=== PATIENT | male | born 1950 | race Caucasian/White ===

== ENCOUNTER → 2018-06-16 | Day surgery (SDC) | payer MEDICARE ==
[2018-06-09 16:19] LABS: BASOPHILS # (AUTO) 0.1 (0.0-0.1); BASOPHILS % 0.8 % (0.0-1.0); EOSINOPHILS # (AUTO) 0.3 (0.0-0.4); EOSINOPHILS % 3.2 % (0.0-6.0); HEMATOCRIT 42.5 % (38.2-49.6); HEMOGLOBIN 13.8 g/dL (14.0-18.0); LYMPHOCYTES # (AUTO) 3.3 (1.0-3.2); LYMPHOCYTES % 38.8 % (18.0-39.1); MEAN CORPUSCULAR HEMOGLOBIN 30.9 pg (28-32); MEAN CORPUSCULAR HGB CONC 32.5 g/dL (31-35); MEAN CORPUSCULAR VOLUME 95.1 fL (81-99); MONOCYTES # (AUTO) 0.8 (0.2-0.8); PLATELET COUNT 232 x10e3/uL (140-360); RED BLOOD COUNT 4.47 x10e6/uL (4.3-5.7); RED CELL DISTRIBUTION WIDTH 14.6 % (11.7-14.4)
[~2018-06-16] MED LIST: ATENOLOL50 MG PO; FLOMAX0.4 MG PO; KETAMINE HCL INJ 50 MG/ML 10 ML VIAL ONE; LIDOCAINE HCL 2% LOCAL INJ 5 ML SDV VIAL INJ ONE; LIPITOR10 MG PO; MIDAZOLAM HCL 2 MG/2 ML VIAL ONE; NORCO 10-325 T1 EACH PO; PROPOFOL IV EMULSION 10 MG/ML 50 ML VIAL ONE
[2018-06-16 16:00] VITALS: BP 135/76
--- NOTE | 2018-06-16 18:16 | Operative Report ---
DATE OF PROCEDURE: June 16, 2018 REFERRING PHYSICIAN: Dr. Jamel Ma PROCEDURE PERFORMED: Colonoscopy with polypectomy. INDICATIONS FOR COLONOSCOPY: Colorectal cancer screening. MEDICATION: Patient was done under MAC. Please see anesthesiologist's note. PROCEDURE: With the patient in the left lateral decubitus position, the flexible fiberoptic Olympus colonoscope was inserted into the rectum with ease and advanced all the way to the cecum. Distal sigmoid colon was sharply angulated and negotiated with difficulty and suboptimally visualized. The scope was then withdrawn slowly. Mucosa overlying the cecum and ascending appeared to be within normal limits. One polyp was hot biopsied from the transverse colon. The descending colon appeared to be within normal limits. Diverticular disease was noted in the sigmoid colon. One polyp was removed per hot biopsy forceps from the sigmoid colon. One polyp was hot biopsied from the rectum. The scope was then retroflexed into the distal rectum, and the area around the dentate line appeared to be within normal limits. The scope was then straightened out. It was subsequently withdrawn. Patient tolerated the procedure well. IMPRESSION 1. Transverse colon polyp, hot biopsied. 2. Diverticulosis. 3. Sigmoid colon polyp, hot biopsied. 4. Distal sigmoid colon sharply angulated and negotiated with some difficulty and suboptimally visualized. 5. Rectal polyp, hot biopsied. PLAN: Follow up histology. Initiate high-fiber and low-fat diet. Initiate high-fiber supplement. Start MiraLAX 17 g in a glass of water once daily. Patient might benefit from a followup colonoscopy in 3 to 5 years. Job#: [id number] RI cc:JAMEL MA MD
== END | disposition home or self-care (01) ==
LOC: OR 10:41
PROVIDERS: ATTEND Internal Medicine Gastroenterology
DX: Z12.11 Encounter for screening for malignant neoplasm of colon (principal); D12.3 Benign neoplasm of transverse colon; D12.8 Benign neoplasm of rectum; K57.30 Diverticulosis of large intestine without perforation or abscess without bleeding; K59.09 Other constipation; K56.609 Unspecified intestinal obstruction, unspecified as to partial versus complete obstruction; J44.9 Chronic obstructive pulmonary disease, unspecified; I10 Essential (primary) hypertension; M54.9 Dorsalgia, unspecified; E78.00 Pure hypercholesterolemia, unspecified; Z01.810 Encounter for preprocedural cardiovascular examination; Z01.812 Encounter for preprocedural laboratory examination; Z87.891 Personal history of nicotine dependence; Z80.0 Family history of malignant neoplasm of digestive organs
CPT/HCPCS: 36415; 45384; 85025; 88305; 93005; J2001; J2250; 45378

== ENCOUNTER 2019-08-21 09:53 | Inpatient (IN) | payer MEDICARE ==
[~2019-08-21] VITALS: Ht 167.6 cm; Wt 64.2 kg
[~2019-08-21 09:53] MED LIST changes: -KETAMINE HCL INJ 50 MG/ML 10 ML VIAL ONE; -LIDOCAINE HCL 2% LOCAL INJ 5 ML SDV VIAL INJ ONE; -MIDAZOLAM HCL 2 MG/2 ML VIAL ONE; -PROPOFOL IV EMULSION 10 MG/ML 50 ML VIAL ONE
--- OUTSIDE RECORDS SUMMARY | 2019-08-21 09:58 | XMS REPORT ---
Author Author [facility] Address Unknown Phone Unavailable Care Team Providers Care Hotel Breakfast Attendant Name Role Phone RASHIDA MA Unavailable Unavailable Problems This patient has no known problems. Allergies, Adverse Reactions, Alerts This patient has no known allergies or adverse reactions. Medications This patient has no known medications. Results Test Description Test Time Test Comments Text Results Atomic Results Result Comments CHEST 2 VIEWS 2019-06-28 11:31:00 [facility] [address] [address] Patient Name: LIONEL DOLL MR #: [id number] : 1950 Age/Sex: 69/M Req #: [id number] [facility] Physician: Ordered by: RASHIDA MA MD Report #: [id number] Location: RAD Room/Bed: Procedure: [id number] DX/CHEST 2 VIEWS Exam Date: 06/28/19 Exam Time: 1101 REPORT STATUS: Signed Chest, 2 views, 06/28/2019. History: COPD. C omparison: 04/23/2015. Findings: The cardiomediastinal silhouette and pulmonary vasculature are within normal limits. Mild hyperinflation of the lungs is present. The lungs are clear without evidence of consolidation or pleural effusion. Minimal right apical pleural thickening and scarring are noted. There are no acute osseous or soft tissue abnormalities. Impression: Chronic emphysematous disease. No acute cardiopulmonary abnormality. Signed by: Vidhi Mills on 06/28/2019 11:32 AM Dictated By: VIDHI MILLS MD 113 Transcribed By: LENI on 06/28/191131 COPY TO: RASHIDA MA MD
[2019-08-21] MEDS ORDERED: SODIUM CHLORIDE 0.9% 1000ML 1,000 ML IV STA (10:12)
[2019-08-21] MEDS ORDERED: PANTOPRAZOLE 40 MG 10ML VIAL IV STA (10:12)
[2019-08-21] MEDS ORDERED: METHYLPREDNISOLONE SOD SUCC 125 MG/2ML VIAL IV STA (10:31)
[2019-08-21] MEDS ORDERED: ALBUTEROL SULF 0.083% NEB SOLN 3 ML NEB NEB STA (10:31)
[2019-08-21 10:37] LABS: BASOPHILS # (AUTO) 0.1 (0.0-0.1); BASOPHILS % 0.4 % (0.0-1.0); EOSINOPHILS % 0.1 % (0.0-6.0); HEMATOCRIT 40.5 % (38.2-49.6); HEMOGLOBIN 13.6 g/dL (14.0-18.0); LYMPHOCYTES # (AUTO) 1.2 (1.0-3.2); LYMPHOCYTES % 10.7 % (18.0-39.1); MEAN CORPUSCULAR HEMOGLOBIN 30.6 pg (28-32); MEAN CORPUSCULAR HGB CONC 33.6 g/dL (31-35); MEAN CORPUSCULAR VOLUME 91.2 fL (81-99); MONOCYTES # (AUTO) 1.2 (0.2-0.8); MONOCYTES % 10.7 % (4.4-11.3); NEUTROPHILS # (AUTO) 8.6 (2.1-6.9); PLATELET COUNT 291 x10e3/uL (140-360); RED BLOOD COUNT 4.44 x10e6/uL (4.3-5.7); RED CELL DISTRIBUTION WIDTH 15.1 % (11.7-14.4)
[2019-08-21] MEDS ORDERED: IPRATROPIUM BROMIDE 0.02% 2.5 ML NEB NEB ONE (10:45)
[2019-08-21 10:51] LABS: INR 0.96; PROTHROMBIN TIME 13.4 seconds (11.9-14.5)
[2019-08-21 10:52] LABS: PARTIAL THROMBOPLASTIN TIME 31.4 seconds (23.8-35.5)
[2019-08-21 11:00] LABS: ALANINE AMINOTRANSFERASE 31 IU/L (0-55); ALBUMIN 2.3 g/dL (3.5-5.0); ALBUMIN/GLOBULIN RATIO 0.4 (0.8-2.0); ALKALINE PHOSPHATASE 56 IU/L (40-150); ANION GAP 14.8 mmol/L (8-16); BLOOD UREA NITROGEN 42 mg/dL (7-26); BUN/CREATININE RATIO 33 (6-25); CALCIUM 10.7 mg/dL (8.4-10.2); CARBON DIOXIDE 29 mmol/L (22-29); CHLORIDE 98 mmol/L (98-107); CREATINE KINASE 18 IU/L (30-200); CREATININE, SERUM 1.29 mg/dL (0.72-1.25); EST GLOMERULAR FILTRATION RATE 55 ML/MIN (60-); GLUCOSE 132 mg/dL (74-118); MAGNESIUM 2.7 MG/DL (1.3-2.1); POTASSIUM 3.8 mmol/L (3.5-5.1); SODIUM 138 mmol/L (136-145)
[2019-08-21 11:05] LABS: INFLUENZAE A&B ANTIGEN (RAPID) NEGATIVE (NEGATIVE); STREPTOCOCCUS GRP A ANTIGEN NEGATIVE (NEGATIVE)
--- NOTE | 2019-08-21 12:38 | Diagnostic Imaging Report ---
EXAM: CHEST 2 VIEWS DATE: 08/21/2019 10:12 AM INDICATION: Cough, hemoptysis COMPARISON: 06/28/2019 FINDINGS: There has been interval development of patchy consolidative opacities within the right middle lobe which were not present on the prior examination from 06/28/2019. The left lung is clear. The cardiomediastinal silhouette is stable in appearance. No acute osseous abnormality is identified. IMPRESSION: Interval development of patchy consolidative opacities predominantly within the right middle lobe concerning for a infectious/inflammatory process such as pneumonia. Follow-up examination is recommended after treatment to ensure resolution. Signed by: Dr. Noam Archibald MD on 08/21/2019 12:35 PM
--- NOTE | 2019-08-21 12:44 | Diagnostic Imaging Report ---
History: Fall, pain Comparison studies:None Technique: Axial images were obtained from the brain and cervical spine. Coronal and sagittal images reconstructed from the axial data. Intravenous contrast: None Dose modulation, iterative reconstruction, and/or weight based adjustment of the mA/kV was utilized to reduce the radiation dose to as low as reasonably achievable. Findings: Head CT: Scalp/skull: No abnormalities. No fractures, blastic or lytic lesions. Brain sulci: Mildly prominent. Ventricles: Mild compensatory dilatation. No hydrocephalus. Parenchyma: Subtle hypodensities in the supratentorial white matter are small vessel ischemic changes. No masses, hemorrhage, acute or chronic cortical vascular insults. Sellar/suprasellar region: No abnormalities. Craniocervical junction: Patent foramen magnum. No Chiari one malformation. Incidental findings: Atherosclerotic calcifications in the carotid siphons and right vertebral artery. Cervical spine CT: Fractures: None. Soft tissues: No gross abnormalities. Atlantoaxial articulation: No acute abnormality. Alignment: Normal lordosis. No scoliosis. Cervicomedullary junction: No abnormalities. Patent foramen magnum. Vertebrae: No infection or neoplasm. Degenerative changes: Disc degeneration with decreased intervertebral space at C5-6 and C6-7. Moderate to severe degenerative bilateral foraminal narrowing at C5-6 and C6-7, more significant in the former. Incidental findings: Atherosclerotic calcifications of the carotid bulbs. Paraseptal and centrilobular emphysematous changes at the bilateral lung apices. Impression: Head CT: 1. No acute abnormality. Cervical spine CT: 1. No acute abnormalities. 2. Cannot exclude ligament, spinal cord and or vascular abnormalities on the basis of this examination. Signed by: DR Kailash Machuca M.D. on 08/21/2019 12:41 PM
[2019-08-21] MEDS ORDERED: NICOTINE 14 MG/EA PATCH TOP SCH (12:45)
[2019-08-21] MEDS ORDERED: AZITHROMYCIN 500MG/NS 250 ML 250 ML IV SCH (12:45)
[2019-08-21] MEDS ORDERED: CEFTRIAXONE SOD 1 GM/NS 50 ML 50 ML IV SCH (12:45)
[2019-08-21] MEDS ORDERED: ALBUTEROL SULF 0.083% NEB SOLN 3 ML NEB NEB SCH ×2 (12:45→15:00)
[2019-08-21 13:24] LABS: BAND NEUTROPHILS % (MANUAL) 5 %; EOSINOPHILS % (MANUAL) 1 % (0-7); LYMPHOCYTES % (MANUAL) 16 % (19-48); METAMYELOCYTES % (MANUAL) 1 % (0-0); MONOCYTES % (MANUAL) 8 % (3.4-9.0); MYELOCYTES % (MANUAL) 1 % (0-0); NEUTROPHILS % (MANUAL) 68 % (40-74); PLATELET ESTIMATE ADEQUATE; PLATELET MORPHOLOGY COMMENT FEW GIANT; RBC MORPHOLOGY COMMENT NORMAL
[2019-08-21] MEDS: SODIUM CHLORIDE 0.9% 1000ML 1,000 ML IV SCH ×2 (14:00→22:43)
[2019-08-21] MEDS ORDERED: IPRATROPIUM BROMIDE 0.02% 2.5 ML NEB NEB SCH ×2 (14:00→15:00)
[2019-08-21 19:21] LABS: CREATINE KINASE 20 IU/L (30-200)
--- NOTE | 2019-08-21 19:28 | History and Physical ---
CHIEF COMPLAINT: I could not breathe a few days ago. HISTORY OF PRESENT ILLNESS: This is a 69-year-old white man, who presents to [facility] with a 5-day history of worsening shortness of breath, cough, chest congestion. In the emergency room, the patient was found to have white blood cell count 23677 with 68% segmented neutrophils and 5% bands. The patient's hemoglobin 13.6 g/dL. The patient was also found to have BUN and creatinine of 42 and 1.29 respectively. The patient's B-type natriuretic peptide level was normal 50.7. The patient's influenza type A and B antigen was negative as well as group A streptococcal screen. Chest x-ray performed in the emergency room, however, revealed patchy consolidative opacities, predominant right middle lobe. The patient was admitted for further evaluation and treatment. Also, the patient states he has never received pneumococcal vaccine and he has not received influenza vaccine this season. The patient states he is not interested in receiving any adult vaccinations. However, he states he is interested in tobacco cessation. REVIEW OF SYSTEMS: GENERAL: The patient states he has lost maybe 5-10 pounds over last couple of months unintentionally. Complains of slight fever today, but no shaking chills. Denies any malaise. HEENT: No headaches. No visual changes. CARDIOVASCULAR/RESPIRATORY: Worsening shortness of breath, cough, and chest congestion over the last 5 days. No chest pain or tightness. GI: No nausea or vomiting. He did have diarrhea for couple of days. No constipation. : No UTI or BPH. NEUROMUSCULAR: No limb weakness or numbness. PAST MEDICAL HISTORY: 1. Tobacco abuse. 2. COPD. 3. Hyperlipidemia. 4. Hypertensive heart disease. 5. Benign prostatic hypertrophy. ALLERGIES: NO KNOWN DRUG ALLERGIES. FAMILY HISTORY: No family history of colon or prostate cancer. His father of liver cirrhosis, but was heavy alcoholic. SURGICAL HISTORY: 1. Left knee arthroscopy. 2. Colonoscopy on 2018, was normal. SOCIAL HISTORY: This man is , lives with his . He worked in a [employer] plant for 43 years, but is currently retired. The patient states he was heavy alcohol drinker, but quit in 2004. The patient states he does smoke tobacco. HOME MEDICATIONS: 1. Atorvastatin 10 mg at bedtime. 2. Atenolol 50 mg daily. 3. Tamsulosin 0.4 mg daily. 4. Symbicort 160/4.5 2 puffs b.i.d. 5. Casper 10/325 one t.i.d. p.r.n. pain. PHYSICAL EXAMINATION: GENERAL: He is awake, alert, and fully oriented. His at bedside. He does not appear to be any obvious distress. VITAL SIGNS: Height 5 feet 6 inches, weight 140 pounds, BMI 22, blood pressure is 116/72, pulse is 80, respiratory rate is 22, oxygen saturation 94% on room air, and temperature 99.1. INTEGUMENT: Skin is warm and dry. No pallor, jaundice, or diaphoresis. HEENT: Clear. Moist mucous membranes. NECK: Supple. CARDIOVASCULAR: Distant heart sounds. Regular rhythm. LUNGS: Diminished breath sounds at bases. ABDOMEN: Benign. EXTREMITIES: No edema. He does seem to have slight clubbing of his fingernails. NEUROLOGIC: Intact. DIAGNOSES: 1. Right-sided pneumonia. 2. Chronic obstructive pulmonary disease exacerbation. 3. Tobacco abuse. 4. Hypertensive heart disease. 5. Acute renal insufficiency, likely secondary to acute tubular necrosis. PLAN: 1. Order blood cultures. 2. Order scheduled nebulized bronchodilators. 3. We will order nicotine patch to hoop punch operator helper the patient's tobacco cessation. 4. Continue intravenous antibiotics. 5. Continue intravenous fluids to help correct patient's acute renal insufficiency. 6. If the patient's renal function improved to baseline, we are likely going to order a CT of the chest with intravenous contrast to further elucidate these right-sided lung opacities. I spent 45 minutes in care of the patient. MD DAVE Ortiz/AYLIN /[id number] JILLIAN
[2019-08-21] MEDS: ALBUTEROL/IPRATROPIUM 3 ML NEB NEB SCH (20:30)
[2019-08-21 21:00] VITALS: BP 104/62
[2019-08-21] MEDS: LEVOFLOXACIN 750MG/D5W 150ML 150 ML IV SCH (21:39)
[2019-08-21 21:48] VITALS: BP 135/66
--- NOTE | 2019-08-21 22:00 | NUR ---
Patient received via stretcher from ER. AAO x 4. Patient had no complaints of pain. Respirations even and non-labored. Admission history obtained. Initial physical assessment performed. Patient oriented to room , call light and plan of care. Telemetry in place. Fall precautions implemented. Patient instructed to call for assistance when needed. Call light within reach.
[2019-08-21] MEDS: NICOTINE 21 MG/EA PATCH TOP SCH (23:00)
--- NOTE | 2019-08-21 23:20 | NUR ---
Patient complained of chronic lower back pain (12/20). Dr. Nick notified. New order received to continue home medication (Manati 10-325 mg).
[2019-08-22] VITALS (8 sets, daily range): BP systolic 105–126; BP diastolic 56–70
[2019-08-22] MEDS: HYDROCODONE/APAP 10MG-325MG TAB PO PRN ×3 (00:11→16:26)
[2019-08-22] MEDS: ALBUTEROL/IPRATROPIUM 3 ML NEB NEB SCH ×7 (00:30→23:25)
--- NOTE | 2019-08-22 02:45 | NUR ---
Blood specimen sent to lab for analysis of cardiac enzymes.
[2019-08-22] MEDS: CEFTRIAXONE SOD 1 GM/NS 50 ML 50 ML IV SCH ×2 (03:22→14:56)
[2019-08-22 03:42] LABS: CREATINE KINASE 19 IU/L (30-200)
[2019-08-22 05:42] LABS: BASOPHILS % 0.4 % (0.0-1.0); HEMATOCRIT 32.7 % (38.2-49.6); HEMOGLOBIN 10.7 g/dL (14.0-18.0); LYMPHOCYTES # (AUTO) 0.7 (1.0-3.2); LYMPHOCYTES % 9.3 % (18.0-39.1); MEAN CORPUSCULAR HEMOGLOBIN 29.9 pg (28-32); MEAN CORPUSCULAR HGB CONC 32.7 g/dL (31-35); MEAN CORPUSCULAR VOLUME 91.3 fL (81-99); MONOCYTES # (AUTO) 0.4 (0.2-0.8); NEUTROPHILS # (AUTO) 6.5 (2.1-6.9); NEUTROPHILS % 81.8 % (38.7-80.0); PLATELET COUNT 290 x10e3/uL (140-360); RED BLOOD COUNT 3.58 x10e6/uL (4.3-5.7)
[2019-08-22 06:05] LABS: ALANINE AMINOTRANSFERASE 28 IU/L (0-55); ALBUMIN/GLOBULIN RATIO 0.5 (0.8-2.0); ALKALINE PHOSPHATASE 43 IU/L (40-150); ANION GAP 10.5 mmol/L (8-16); BLOOD UREA NITROGEN 33 mg/dL (7-26); BUN/CREATININE RATIO 42 (6-25); CALCIUM 9.5 mg/dL (8.4-10.2); CARBON DIOXIDE 27 mmol/L (22-29); CHLORIDE 102 mmol/L (98-107); CREATININE, SERUM 0.78 mg/dL (0.72-1.25); EST GLOMERULAR FILTRATION RATE > 60 ML/MIN (60-); GLUCOSE 155 mg/dL (74-118); POTASSIUM 3.5 mmol/L (3.5-5.1); SODIUM 136 mmol/L (136-145)
--- NOTE | 2019-08-22 06:18 | NUR ---
Sputum specimen sent to lab for culture.
[2019-08-22 06:32] LABS: CREATINE KINASE 15 IU/L (30-200)
--- NOTE | 2019-08-22 07:00 | NUR ---
Walking rounds done. Bed-side report given to oncoming nurse regarding patient's status.
[2019-08-22] MEDS: NICOTINE 21 MG/EA PATCH TOP SCH (08:23)
[2019-08-22 08:45] LABS: LYMPHOCYTES % (MANUAL) 20 % (19-48); PLATELET ESTIMATE ADEQUATE; PLATELET MORPHOLOGY COMMENT NORMAL; RBC MORPHOLOGY COMMENT NORMAL
[2019-08-22 08:46] LABS: MONOCYTES % (MANUAL) 3 % (3.4-9.0); NEUTROPHILS % (MANUAL) 77 % (40-74)
--- NOTE | 2019-08-22 10:05 | Progress Note ---
DATE: 08/22/2019 CHIEF COMPLAINT/HISTORY OF PRESENT ILLNESS: This is a 69-year-old white man, whose primary diagnosis is right-sided pneumonia, COPD exacerbation. The patient has a history of heavy tobacco smoker. The patient states he does feel better today. Blood work performed today reveals white blood cell count 7900 with 81% segmented neutrophils. Hemoglobin is 10.7 g/dL. The patient's chemistries are normal except potassium is 3.5. REVIEW OF SYSTEMS: As per HPI. PHYSICAL EXAMINATION: GENERAL: He is awake, alert, and fully oriented. He has no respiratory distress. VITAL SIGNS: Blood pressure is 124/56, pulse 76, respiratory rate 22, oxygen saturation 94% on room air, and temperature 97.5. BMI 22. INTEGUMENT: Skin is warm and dry. No pallor, jaundice, diaphoresis. HEENT: Anterior sclerae. Moist mucous membranes. NECK: Supple. CARDIOVASCULAR: Distant heart sounds. Regular rate and rhythm. LUNGS: Decreased breath sounds at bases. ABDOMEN: Benign. EXTREMITIES: No edema or deformity. NEUROLOGIC: Intact. ASSESSMENT: 1. Right-sided pneumonia. 2. Chronic obstructive pulmonary disease exacerbation. 3. Tobacco abuse. 4. Hypertensive heart disease. 5. Acute renal insufficiency secondary to acute tubular necrosis, resolved. PLAN: 1. Follow blood cultures. 2. Continue intravenous antibiotics. 3. Discontinue intravenous fluids. 4. Discontinue telemetry. 5. Discontinue continuous pulse oximetry. 6. Continue nicotine patch to residential roofer helper in the patient's tobacco cessation. 7. We will follow electrolytes and renal function. 8. We will order a CT of the chest with intravenous contrast since the patient has impressive right middle and lower lobe opacities and has a history of heavy tobacco smoking. I spent 35 minutes in the care of the patient. MD DAVE Ortiz/AYLIN /[id number] JILLIAN
[2019-08-22] MEDS ORDERED: SODIUM CHLORIDE 0.9% 1000ML 1,000 ML IV ONE (10:15)
[2019-08-22] MEDS ORDERED: POTASSIUM CHLORIDE 10MEQ EA PO ONE (10:40)
[2019-08-22] MEDS ORDERED: IOPAMIDOL 370 MG/ML 200 ML INFUS..BTL INJ ONE (13:36)
[2019-08-22] MEDS ORDERED: SODIUM CHLORIDE 0.9% 50ML 50 ML ONE (13:36)
--- NOTE | 2019-08-22 14:18 | Diagnostic Imaging Report ---
EXAM: CT Chest WITH intravenous contrast 08/22/2019 9:19 AM INDICATION: Pneumonia COMPARISON: Chest radiograph 08/21/2019 TECHNIQUE: Chest was scanned utilizing a multidetector helical scanner from the lung apex through the level of the adrenal glands after administration of IV contrast. Coronal and sagittal reformations were obtained. Routine protocol was performed. IV CONTRAST: 100mL Isovue 370 RADIATION DOSE: Total DLP: 522 mGy*cm. Dose modulation, iterative reconstruction, and/or weight based adjustment of the mA/kV was utilized to reduce the radiation dose to as low as reasonably achievable. COMPLICATIONS: None FINDINGS: LINES/ TUBES: None. LUNGS AND AIRWAYS: The central airways are patent. Extensive bilateral upper lobe predominant centrilobular and paraseptal emphysema. Multifocal consolidation involving the right middle lobe. No lobar consolidation elsewhere. Mild dependent right lower lobe subsegmental atelectasis. PLEURA: The pleural spaces are clear. HEART AND MEDIASTINUM: The thyroid gland is normal. No supraclavicular, axillary, or mediastinal lymphadenopathy. 2.2 x 1.2 cm right hilar adenopathy (Series 2 image 68). The heart is not enlarged. No pericardial effusion. Scattered atherosclerotic calcifications involve the coronary arteries and thoracic aorta. This study is not tailored for evaluation of the pulmonary arteries, however there are no filling defects in the central pulmonary arteries to the segmental level to suggest pulmonary embolism. UPPER ABDOMEN: Subcentimeter right hepatic cyst. No acute findings in the upper abdomen. BONES: No acute osseous injury. No suspicious lytic or blastic lesions. SOFT TISSUES: Unremarkable. IMPRESSION: Right middle lobe pneumonia. Right hilar lymphadenopathy, likely reactive. Severe upper lobe predominant centrilobular and paraseptal emphysema. Signed by: Demetrius Delgado MD on 08/22/2019 2:15 PM
--- NOTE | 2019-08-22 15:01 | NUR ---
Paged to notify of CT results. Awaiting call back
--- NOTE | 2019-08-22 15:54 | NUR ---
aware of CT results.
[2019-08-22] MEDS: LEVOFLOXACIN 750MG/D5W 150ML 150 ML IV SCH (17:01)
--- NOTE | 2019-08-22 19:08 | NUR ---
Report given to oncoming nurse of patient's status. Resting in bed. No s/s of acute distress noted. Side rails upx2, call light within reach.
--- NOTE | 2019-08-22 19:15 | NUR ---
Patient received lying in bed. AAO x 3. No acute distress noted. Call light within reach.
[2019-08-23] VITALS: BP 112/62
[2019-08-23] MEDS: CEFTRIAXONE SOD 1 GM/NS 50 ML 50 ML IV SCH (02:00)
[2019-08-23 04:00] VITALS: BP 120/59
[2019-08-23] MEDS: ALBUTEROL/IPRATROPIUM 3 ML NEB NEB SCH ×3 (04:10→11:00)
[2019-08-23 05:40] LABS: BASOPHILS # (AUTO) 0.1 (0.0-0.1); BASOPHILS % 0.8 % (0.0-1.0); EOSINOPHILS % 0.1 % (0.0-6.0); HEMATOCRIT 29.9 % (38.2-49.6); LYMPHOCYTES # (AUTO) 2.1 (1.0-3.2); MEAN CORPUSCULAR HEMOGLOBIN 30.5 pg (28-32); MEAN CORPUSCULAR HGB CONC 33.4 g/dL (31-35); MEAN CORPUSCULAR VOLUME 91.2 fL (81-99); MONOCYTES # (AUTO) 0.7 (0.2-0.8); MONOCYTES % 9.3 % (4.4-11.3); NEUTROPHILS # (AUTO) 4.2 (2.1-6.9); NEUTROPHILS % 55.7 % (38.7-80.0); PLATELET COUNT 352 x10e3/uL (140-360); RED BLOOD COUNT 3.28 x10e6/uL (4.3-5.7); RED CELL DISTRIBUTION WIDTH 15.8 % (11.7-14.4)
[2019-08-23 06:04] LABS: ANION GAP 8.4 mmol/L (8-16); BLOOD UREA NITROGEN 22 mg/dL (7-26); BUN/CREATININE RATIO 34 (6-25); CALCIUM 8.8 mg/dL (8.4-10.2); CARBON DIOXIDE 27 mmol/L (22-29); CHLORIDE 108 mmol/L (98-107); CREATININE, SERUM 0.65 mg/dL (0.72-1.25); EST GLOMERULAR FILTRATION RATE > 60 ML/MIN (60-); GLUCOSE 109 mg/dL (74-118); POTASSIUM 3.4 mmol/L (3.5-5.1); SODIUM 140 mmol/L (136-145)
--- NOTE | 2019-08-23 06:24 | Diagnostic Imaging Report ---
EXAMINATION: CHEST SINGLE (PORTABLE) INDICATION: Right-sided pneumonia. COMPARISON: Chest radiograph 08/21/[address] chest 08/22/2019. FINDINGS: TUBES and LINES: None. LUNGS: Emphysematous lungs. Patchy and consolidative opacities in the right mid and lower lungs, most confluent in the right middle lobe. The left lung is clear. PLEURA: No pleural effusion or pneumothorax. HEART AND MEDIASTINUM: The cardiomediastinal silhouette is unremarkable. BONES AND SOFT TISSUES: No acute osseous lesion. Soft tissues are unremarkable. UPPER ABDOMEN: No free air under the diaphragm. IMPRESSION: Right-sided pneumonia. Signed by: Dr. Jagdish Damico MD on 08/23/2019 6:21 AM
--- NOTE | 2019-08-23 06:50 | NUR ---
Walking rounds done. Shift report given to oncoming nurse.
[2019-08-23 07:46] VITALS: BP 145/81
[2019-08-23 07:50] VITALS: BP 145/81
[2019-08-23] MEDS: NICOTINE 21 MG/EA PATCH TOP SCH (07:59)
[2019-08-23] MEDS: HYDROCODONE/APAP 10MG-325MG TAB PO PRN (07:59)
[2019-08-23] MEDS ORDERED: TAMSULOSIN HCL 0.4 MG CAP PO SCH (09:00)
[2019-08-23] MEDS ORDERED: ATENOLOL 50 MG TAB PO SCH (09:00)
[2019-08-23] MEDS ORDERED: ATORVASTATIN 10 MG TAB PO SCH (09:00)
[2019-08-23] MEDS ORDERED: POTASSIUM CHLORIDE 10MEQ EA PO ONE (09:30)
[2019-08-23] MEDS ORDERED: duoneb INH (09:54)
[2019-08-23] MEDS ORDERED: NICOTINE PATCH1 EAC1 TOP (09:54)
[2019-08-23] MEDS ORDERED: LEVAQUIN500 MG PO (09:55)
[2019-08-23] MEDS ORDERED: PNEUMOCOCCAL VACCINE POLYVALENT 23 MCG/0.5 ML VIAL IM ONE (10:00)
[2019-08-23] MEDS ORDERED: INFLUENZA VIRUS VAC SPLIT INJ 0.5 ML SYR IM ONE (10:00)
--- NOTE | 2019-08-23 10:27 | Discharge Summary ---
ADMIT DIAGNOSES: 1. Sepsis secondary to right-sided pneumonia. 2. Chronic obstructive pulmonary disease exacerbation. 3. Tobacco abuse. 4. Hypertensive heart disease. DISCHARGE DIAGNOSES: 1. Sepsis secondary to right-sided pneumonia, resolved. 2. Right-sided pneumonia, resolving. 3. Chronic obstructive pulmonary disease exacerbation, resolved. 4. Chronic obstructive pulmonary disease. 5. Hyperlipidemia. 6. Hypertensive heart disease. 7. Right-sided pneumonia, likely pneumococcal. HOSPITAL COURSE: This 69-year-old white man who was initially admitted to [facility] with diagnosis of sepsis secondary to pneumonia that was present on admission. The patient's sepsis resolved during this hospitalization. The patient improved in regard to his pneumonia with intravenous levofloxacin and ceftriaxone. Blood culture during this hospitalization did not reveal any bacterial growth. The sputum stain revealed gram-positive cocci in pairs, but the culture was still pending on day of discharge. Tobacco cessation was highly recommended to the patient. CONDITION ON DISCHARGE: Stable. DISCHARGE MEDICATIONS: 1. Levofloxacin 750 mg daily for 14 days. 2. Nicotine patch 21 mg daily. 3. Hydrocodone/acetaminophen 10/325 one t.i.d. p.r.n. pain. 4. Tamsulosin 0.4 mg 30 minutes after supper every night. 5. Atorvastatin 10 mg at bedtime. 6. Atenolol 50 mg daily. 7. Albuterol/ipratropium nebulized treatments up to 4 times a day as needed for shortness of breath and wheezing. FOLLOWUP INSTRUCTIONS: The patient was instructed to follow up with his primary care physician namely myself, Dr. Mccullough within 2 weeks. Once again, tobacco cessation was highly recommended to the patient. MD DAVE Ortiz/AYLIN /[id number]
--- NOTE | 2019-08-23 11:13 | NUR ---
Right AC IV discontinued. No signs of infiltration noted. 2x2 gauze and tape placed. Taken via wheelchair by PCT to personal car. AAOX4 to time, person, place, situation. Respirations even and unlabored. Discharge instructions, rx, and all personal belongings taken with patient.
[2019-08-23] MEDS ORDERED: LEVOFLOXACIN 500 MG TAB PO SCH (18:00)
== END 2019-08-23 11:13 | disposition home or self-care (01) | DRG 871 ==
LOC: ER 09:53 → ERHOLD 12:43 → MED/SURG2 22:02
PROVIDERS: ADMIT Internal Medicine; ATTEND Internal Medicine
DX: A41.9 Sepsis, unspecified organism (principal); J13 Pneumonia due to Streptococcus pneumoniae; N17.0 Acute kidney failure with tubular necrosis; J44.1 Chronic obstructive pulmonary disease with (acute) exacerbation; J44.0 Chronic obstructive pulmonary disease with (acute) lower respiratory infection; I11.9 Hypertensive heart disease without heart failure; E78.5 Hyperlipidemia, unspecified; F17.200 Nicotine dependence, unspecified, uncomplicated; N40.0 Benign prostatic hyperplasia without lower urinary tract symptoms
CPT/HCPCS: 36415; 70450; 71045; 71046; 71260; 72125; 80048; 80053; 82550; 82553; 83518; 83735; 83880; 84484; 85025; 85610; 85730; 87040; 87070; 87205; 87400; 90732; 93005; 94640; 99284; J0456; J0696; J2930; J7030; Q9967